=== PATIENT | female | born 1945 | race Caucasian/White ===

== ENCOUNTER 2016-09-05 21:30 | Emergency (ER) | payer OTHER, BC ==
[2016-09-05] MEDS ORDERED: DIPHTH,PERTUSS(ACELL),TET 0.5 ML DISP.SYRIN IM ONE (21:44)
--- NOTE | 2016-09-05 21:48 | PDOC ---
History of Present Illness <Dheeraj Marie - Last Filed: 09/05/16 21:45> - General History Source: Patient Exam Limitations: No Limitations - History of Present Illness Initial Comments: 09/05/16 21:48 The patient is a 71 year old female, with a significant past medical history of colon cancer s/p resection and varicose veins who presents to the emergency department with right foot laceration today. The patient reports doing the dishes when she dropped a plate, cutting the dorsal side of her right foot while she was wearing socks. She denies any numbness and tingling in her RLE. She denies recent fevers, chills, headache or dizziness. She denies recent nausea, vomit, diarrhea or constipation. Allergies: NKA Surgical History: Arthroscopic right shoulder and knee. See HPI Social history: Nonsmoker. Denies EtOH use and drug use. <Michael Rios - Last Filed: 09/05/16 21:48> - General Chief Complaint: Injury Stated Complaint: RIGHT FOOT LACERATION Time Seen by Provider: 09/05/16 21:44 Past History - Past Medical History Cancer: Yes (COLON) Hypercholesterolemia: Yes - Surgical History Abdominal Surgery: Yes (COLON RESECTION 2004) - Psycho/Social/Smoking Cessation Hx Anxiety: No Suicidal Ideation: No Smoking Status: Yes Smoking History: Never smoked Number of Cigarettes Smoked Daily: 0 Hx Alcohol Use: No <Dheeraj Marie - Last Filed: 09/05/16 21:45> <Michael Rios - Last Filed: 09/05/16 21:48> - Past Medical History Allergies/Adverse Reactions: Allergies Allergy/AdvReac Type Severity Reaction Status Date / Time acetaminophen AdvReac Unknown Verified 11/25/13 13:07 [From Tylenol-Codeine #3] codeine phosphate AdvReac Unknown Verified 11/25/13 13:07 [From Tylenol-Codeine #3] meperidine HCl [From Demerol] AdvReac Unknown Verified 11/25/13 13:07 Home Medications: Ambulatory Orders Aspirin Coated [Ecotrin -] 81 mg PO DAILY 12/20/12 Calcium Carbonate/Vitamin D3 [Caltrate 600 + D Tablet] 1 each PO DAILY 12/20/12 Cholecalciferol (Vitamin D3) [Vitamin D] 1,000 unit PO DAILY 12/20/12 Docosahexanoic Acid/Epa [Fish Oil Softgel] 1 each PO DAILY 12/20/12 Ezetimibe/Simvastatin [Vytorin 10-20 mg Tablet] 1 each PO HS 12/20/12 Multivitamin/Iron/Folic Acid [Centrum Ultra Women's Tablet] 1 each PO DAILY 12/26 Vitamin E 1,000 unit PO DAILY 12/20/12 Amoxicillin/Potassium Clav [Augmentin 875-125 Tablet] 1 each PO BID 09/05/16 *Physical Exam - Physical Exam General Appearance: Yes: Nourished, Appropriately Dressed. No: Apparent Distress Respiratory/Chest: negative: Respiratory Distress Cardiovascular: positive: Regular Rhythm, Regular Rate Extremity: positive: Normal Capillary Refill, Normal Inspection, Normal Range of Motion Integumentary: positive: Other (1.5 CM SUP LAC RT FOOT NO BLEEDING NO EV OF FB) Neurologic: positive: Fully Oriented, Alert, Normal Mood/Affect, Normal Response , Motor Strength 5/5 <Dheeraj Marie - Last Filed: 09/05/16 21:45> - Vital Signs Last Vital Signs Temp Pulse Resp BP Pulse Ox 82 15 124/54 98 09/05/16 21:38 09/05/16 21:38 09/05/16 21:38 09/05/16 21:38 <Michael Riso - Last Filed: 09/05/16 21:48> Procedures - Laceration/Wound Repair Right Dorsal Foot Wound Length: to 2.5 cm Wound Explored: clean Wound's Depth, Shape: superficial Irrigated w/ Saline: Yes Wound Repaired With: Dermabond <Dheeraj Marie - Last Filed: 09/05/16 21:45> *DC/Admit/Observation/Transfer <Dheeraj Marie - Last Filed: 09/05/16 21:45> - Attestations Scribe Attestion: 09/05/16 21:48 Documentation prepared by Michael Rios, acting as medical data analyst for Dheeraj Marie MD. <Michael Rios - Last Filed: 09/05/16 21:48> Diagnosis at time of Disposition: Laceration of foot Qualifiers: Encounter type: initial encounter Laterality: right Qualified Code(s): S91.311A - Laceration without foreign body, right foot, initial encounter - Discharge Dispostion Disposition: HOME Condition at time of disposition: Good - Patient Instructions Additional Instructions: KEEP WOUND DRY FOR 48 HOURS. AFTER, REGULAR SOAP AND WATER DO NOT REMOVE STERI-STRIPS. THEY WOULD FALL ON THEIR OWN TYLENOL IF PAIN ELEVATION RETURN IF BLEEDING, REDNESS, FEVER, SEVERE PAIN SEE YOUR DOCTOR WITHIN FRIDAY
[2016-09-05 21:53] VITALS: BP 124/54; PULSE 82; BMI 26.9
== END 2016-09-05 21:57 | disposition home or self-care (01) ==
LOC: FER 21:30
PROC: 0HQMXZZ Repair Right Foot Skin, External Approach (ICD-10-PCS; principal; 2016-09-05)
DX: S91.311A Laceration without foreign body, right foot, initial encounter (principal); W25.XXXA Contact with sharp glass, initial encounter; Y93.G1 Activity, food preparation and clean up; Y92.000 Kitchen of unspecified non-institutional (private) residence as the place of occurrence of the external cause; Z85.038 Personal history of other malignant neoplasm of large intestine; I83.90 Asymptomatic varicose veins of unspecified lower extremity; E78.00 Pure hypercholesterolemia, unspecified
CPT/HCPCS: 90715; 99282-25